=== PATIENT | male | born 1960 | race Caucasian/White ===

== ENCOUNTER → 2022-09-17 08:50 | Outpatient (BNVA) | payer OTHER, SELFPAY | PROVIDERS: Family Provider Nurse Practitioner Family; PCP Nurse Practitioner Family; Visit Provider Nurse Practitioner Family | DX: N39.0 Urinary tract infection, site not specified (principal); J02.9 Acute pharyngitis, unspecified; R50.9 Fever, unspecified; J02.0 Streptococcal pharyngitis | CPT/HCPCS: 81000; 87426; 87880 ==